=== PATIENT | female | born 1935 | race Caucasian/White ===

== ENCOUNTER 2017-08-19 18:49 | Inpatient (IN) | payer MEDICARE, OTHER ==
[2017-08-19 19:01] VITALS: BMI 28.3
--- NOTE | 2017-08-19 20:07 | PDOC ---
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 Symptoms have been progressively worsening over the past 2-3 days. Denies headache denies arm - Physicial Exam PE: 08/19/17 22:19 Vitals: Triage Vital signs reviewed General Appearance: no acute distress, well nourished well developed, Head: Atraumatic, Eyes: Pupils equal reactive round, extraocular movement intact Cardiac: Regular rate and rhythym, no murmurs, no rubs, no gallops, Lungs: Clear to auscultation bilateral, good air movement bilaterally, Abdomen: Soft, non distended, normal bowel sounds, non tender to palpation Extremities: Full range of motion to all extremities, no cyanosis, clubbing, or edema Skin: Warm and dry, no rashes or lesions, no rash, no petechiae Neuro: AOX3; Left sided facial droop Strength intact to all extremities, Sensation intact to all extremities, Psych: normal mood, normal affect - Medical Decision Making 08/19/17 22:22 Well-appearing no apparent distress with chronic left-sided facial droop which patient states is worse difficulty opening her eye which is worsened baseline We'll check labs head CT EKG observe for neurology consultation MRI and morning and further management.
--- NOTE | 2017-08-19 20:35 | PDOC ---
History of Present Illness - General Chief Complaint: Facial Droop Stated Complaint: FACIAL DROOP Time Seen by Provider: 08/19/17 19:43 - History of Present Illness Initial Comments: 08/19/17 20:15 The patient is an 82 yo f w/ PMH Allen's palsy, CAD s/p stents, previous CVA comes into the ED c/o increased facial droop and spasticity as well as left sided numbness for the past 3 days. Patient states that she has left sided facial weakness and spasticity at baseline, but states that it has increased in severity and began to be associated with numbness along her left face and gums as well as difficulty swallowing. Patient denies chest pain, SOB, chest tightness, cough, fevers, chills, dysuria, urinary frequency or sick contacts. Past History - Past Medical History Allergies/Adverse Reactions: Allergies Allergy/AdvReac Type Severity Reaction Status Date / Time No Known Allergies Allergy Verified 08/19/17 18:57 Home Medications: Ambulatory Orders Gabapentin [Neurontin] 600 mg PO DAILY 09/12/16 Aspirin [ASA -] 81 mg PO DAILY #30 tab.chew 09/15/16 Naproxen [Naprosyn -] 500 mg PO BID #30 tablet 09/15/16 Cardiac Disorders: Yes ([place]) CVA: Yes Hypercholesterolemia: Yes Other medical history: bells palsy - Surgical History Cardiac Surgery: Yes (stents) - Family Disease History Comment:: 08/19/17 21:04 Heart disease in both sides of family - Suicide/Smoking/Psychosocial Hx Smoking History: Never smoked Have you smoked in the past 12 months: No Information on smoking cessation initiated: No Hx Alcohol Use: No Drug/Substance Use Hx: No Substance Use Type: None Neuro Specific PMHX - Complaint Specific PMHX Other Neuro History: previous CVA and bells palsy (unrelated to CVA) Review of Systems - Review of Systems Constitutional: No: Chills, Diaphoresis, Fever, Malaise, Weakness HEENTM: Yes: Difficulty Swallowing, Other (increased spasticity of left facial muscles and left sided numbness). No: Eye Pain, Recent change in vision Respiratory: No: Cough, Shortness of Breath Cardiac (ROS): No: Chest Pain, Edema, Lightheadedness, Palpitations, Syncope ABD/GI: Yes: Difficulty Swallowing. No: Abdominal Distended, Constipated, Diarrhea : No: Burning, Dysuria, Frequency, Urgency Musculoskeletal: No: Back Pain, Joint Pain, Joint Swelling Integumentary: No: Bruising, Change in Hair/Nails, Lesions Neurological: Yes: Numbness, Weakness, Other (spasticity of left facial muscles) . No: Headache Psychiatric: Yes: Anxiety *Physical Exam - Vital Signs Last Vital Signs Temp Pulse Resp BP Pulse Ox 98.1 F 76 18 154/79 95 08/19/17 18:58 08/19/17 18:58 08/19/17 18:58 08/19/17 18:58 08/19/17 18:58 - Physical Exam General Appearance: Yes: Appropriately Dressed. No: Apparent Distress HEENT: positive: Other (Right sided pupils round and reactive to light. EOMI on left. Unable to assess the left side as the patient had difficulty keeping eye open ) Neck: positive: Supple. negative: Tender, Decreased range of motion Respiratory/Chest: positive: Lungs Clear, Normal Breath Sounds. negative: Respiratory Distress, Accessory Muscle Use Cardiovascular: positive: Regular Rhythm, Regular Rate, S1, S2. negative: Edema , JVD, Murmur, Gallop/S3, Gallop/S4 Gastrointestinal/Abdominal: positive: Normal Bowel Sounds, Flat, Soft. negative : Tender Integumentary: positive: Normal Color, Dry, Warm. 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 Patient has increased tone of her left facial muscles which she and her son states are worse than normal. Patient's nerological exam is benign, though there is increased tone on the left which limits some portions of the neuro exam. Though this is likely an acute exacerbation of the patient's previous allen's palsy, the patient has multiple risk factors for thromboembolic events, warranting further workup to rule out new stroke. Infectious etiology in this elderly woman should also be ruled out. NIH stroke scale 1. -non-con CT head -CBC, CMP -EKG -coags -type and screen -CXR -urinalysis 08/19/17 22:53 -CT head negative for acute pathology -CBC, CMP WNL -EKG shows NSR -CXR WNL -Patient will likely require admission for observation 08/20/17 01:58 -Spoke with Dr. Briseno who will agree to admit patient to Tele Obs. -patient is awaiting MRI in AM to further evaluate possible ischemia. *DC/Admit/Observation/Transfer Diagnosis at time of Disposition: Facial droop - Discharge Dispostion Admit: Yes NIH Stroke Scale - Last Known Well Date/Time & Onset Date Last Known Well: 08/15/17 - Initial Evaluation Level of consciousness: Alert Ask patient the month and their age: Answers both correctly Ask patient to open & close eyes; make fist and let go: Obeys both correctly Best gaze (horizontal eye movement): Normal Visual field testing: No visual field loss Facial paresis (Show teeth/raise eyebrows/close eyes tight): Minor paralysis ( flattened nasolabial fold, asymmetry on smiling) Motor Function: Left Arm: Normal Motor Function: Right Arm: Normal (extends arm 90 (or 45) degrees for 10 seconds without drift Motor Function: Left Leg: Normal (extends leg 30 degrees for 5 seconds without drift) Motor Function: Right Leg: Normal (extends leg 30 degrees for 5 seconds without drift) Limb Ataxia: No ataxia Sensory(Use pinprick test arms,legs,trunk,face/side to side): Normal Best language (Describe picture, name items, read sentences): No Aphasia Dysarthria (read several words): Normal articulation Extinction and Inattention: No abnormality - Total Score NIH Stroke Scale Score: 1 tPA Exclusion Checklist 0-3hr - Time Elapsed Date last known well: 08/15/17 - Thrombolytic Therapy Candidate Is the patient eligible for Thrombolytic Therapy?: No - Ineligibility reason(s) Reasons No tPA given: Outside of window - delayed arrival tPA Exclusion checklist 3-4.5h - Time Elapsed Date last known well: 08/15/17 - Thrombolytic Therapy Candidate Is patient eligible for thrombolytic therapy: No - Ineligibility reason(s) Reasons No tPA given: Outside of window - delayed arrival
[2017-08-19 21:13] LABS: MCH 31.4 pg (25.7-33.7); MCHC 34.5 g/dl (32.0-36.0); MEAN CELL VOLUME 90.9 fl (80-96); MEAN PLT VOLUME 8.3 fl (7.5-11.1); PLATELET COUNT 290 K/MM3 (134-434); RDW 14.4 % (11.6-15.6); WHITE BLOOD COUNT 10.5 K/mm3 (4.0-10.0)
[2017-08-19 21:26] LABS: INR 0.99 (0.82-1.09); PROTHROMBIN TIME (PATIENT) 11.2 SEC (9.98-11.88)
[2017-08-19 21:28] LABS: ACTIVATED PTT 27.3 SECONDS (26.9-34.4)
[2017-08-19 22:14] LABS: ALBUMIN 3.2 g/dl (3.4-5.0); ALK PHOS 84 U/L (45-117); ANION GAP 8 (8-16); BILIRUBIN,TOTAL 0.2 mg/dL (0.2-1.0); CALCIUM 8.7 mg/dL (8.5-10.1); CO2 26 mmol/L (21-32); CREATININE 0.6 mg/dL (0.55-1.02); GLUCOSE,RANDOM 109 mg/dL (74-106); SGOT/AST 13 U/L (15-37); SGPT/ALT 18 U/L (12-78); TOT PROT 6.6 g/dl (6.4-8.2)
[2017-08-19 22:17] LABS: PLATELET ESTIMATE ADEQUATE (NORMAL); REACTIVE LYMPHOCYTES 2 % (0-80)
[2017-08-20 00:08] LABS: URINE APPEARANCE CLEAR; URINE BILIRUBIN NEGATIVE (NEGATIVE); URINE BLOOD 1+ (NEGATIVE); URINE COLOR STRAW; URINE GLUCOSE (UA) NEGATIVE (NEGATIVE); URINE KETONE NEGATIVE (NEGATIVE); URINE NITRITE NEGATIVE (NEGATIVE); URINE PROTEIN NEGATIVE (NEGATIVE); URINE UROBILINOGEN NEGATIVE mg/dL (0.2-1.0)
[2017-08-20 00:15] LABS: URINE MUCUS RARE; URINE RBC 1 /hpf (0-3); URINE WBC 1 /hpf (3-5)
[2017-08-20] MEDS ORDERED: FAMOTIDINE 20 MG/50 ML IVPB 50 ML IVPB ONE ×2 (01:37→01:43)
[2017-08-20 08:05] LABS: BASOPHIL 0.5 % (0-2.0); EOSINOPHIL 1.9 % (0-4.5); MCH 30.7 pg (25.7-33.7); MCHC 33.4 g/dl (32.0-36.0); MEAN CELL VOLUME 92.1 fl (80-96); MEAN PLT VOLUME 8.1 fl (7.5-11.1); NEUTROPHILS 63.3 % (42.8-82.8); PLATELET COUNT 270 K/MM3 (134-434); RDW 14.3 % (11.6-15.6); WHITE BLOOD COUNT 8.2 K/mm3 (4.0-10.0)
[2017-08-20 08:36] LABS: ANION GAP 8 (8-16); CALCIUM 8.2 mg/dL (8.5-10.1); CO2 26 mmol/L (21-32); GLUCOSE,RANDOM 91 mg/dL (74-106)
[2017-08-20 08:49] LABS: ALK PHOS 68 U/L (45-117); BILIRUBIN,TOTAL 0.3 mg/dL (0.2-1.0); CREATININE 0.6 mg/dL (0.55-1.02); SGOT/AST 11 U/L (15-37); SGPT/ALT 17 U/L (12-78); THYROID STIMULATING HORMONE 5.58 uIU/ml (0.358-3.74); TOT PROT 5.9 g/dl (6.4-8.2)
[2017-08-20 09:09] LABS: URINE LEUK ESTERASE Negative (NEGATIVE)
[2017-08-20] MEDS: ASPIRIN 81 MG CHEWABLE TABLETS PO SCH (10:15)
[2017-08-20] MEDS: GABAPENTIN 300 MG CAPSULE (FP) PO SCH (10:15)
[2017-08-20] MEDS ORDERED: HEPARIN NA (PORCINE) 5,000 UNITS/ML 1ML VIAL ONE (11:22)
[2017-08-20] MEDS: HEPARIN NA (PORCINE) 5,000 UNITS/ML 1ML VIAL SQ SCH ×2 (11:24→22:06)
--- NOTE | 2017-08-20 13:13 | EKG ---
Test Reason : Blood Pressure : / mmHG Vent. Rate : 062 BPM Atrial Rate : 062 BPM P-R Int : 146 ms QRS Dur : 092 ms QT Int : 420 ms P-R-T Axes : 005 -08 047 degrees QTc Int : 426 ms POOR DATA QUALITY, INTERPRETATION MAY BE ADVERSELY AFFECTED NORMAL SINUS RHYTHM NONSPECIFIC T WAVE ABNORMALITY NO PREVIOUS ECGS AVAILABLE REPEAT EKG IF CLINICALLY INDICATED Confirmed by DAHLIA BAHENA MD ([id number]) on 08/20/2017 1:13:20 PM Referred By: Confirmed By:DAHLIA BAHENA MD
--- NOTE | 2017-08-20 19:08 | CONSULT ---
Consult - text type - Consultation Consultation Note: NEUROLOGY CONSULTATION is greatly appreciated: This 82 yo woman lives alone with her son upstairs. PMH sig for Chol, ASHD s/p stents. 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 I saw her in 2006, but patient claims facial weakness is for "one year." Now admitted with increased "pulling" of the left face and "numbness" of the left cheek. CT of head (reviewed): Normal study with speckled basal ganglia calcification. Carotid duplex: Mild, diffuse plaques without significant hemodynamic changes. MAEGAN: No bruits. Cor- reg. NEURO: MS/speech: normal CN: left hemifacial spasm with synkinetic facial movements and mild residual left Allen's palsy Otherwise II-XII: normal Motor: No drift or tremor. Normal strength, tone, bulk and reflexes. Downgoing toes. Coord: No FTN dystaxia Sensory: Normal. Romberg neg. 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 Suggest: Agree with MRI in AM (otherwise will do as out patient). Begin Oxcarbazepine (Trileptal) 150 mg PO q12 hrs (begin tonight). OK to D/C in the AM Neuro f/u as outpatient (approx 2 weeks) for facial EMG study and increase Oxcarb to 300 q 12 hrs if tolerated. Botox treatment as out patient. Thank you very much, Aniket Valdovinos MD
--- NOTE | 2017-08-20 20:23 | HP ---
Admitting History and Physical - Admission History of Present Illness: The patient is an 82 yo female w/ PMH Allen's palsy, CAD s/p stents, previous CVA and HLD. Pt presented to the ER w/ increased facial droop and spasticity as well as left sided numbness for the past 3 days. Patient states that she has left sided facial weakness and spasticity at baseline, but states that it has increased in severity and began to be associated with numbness along her left face and gums as well as difficulty swallowing. 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) Cardiovascular: Yes: CAD, Hyperlipdemia - Smoking History Smoking history: Never smoked Have you smoked in the past 12 months: No - Alcohol/Substance Use Hx Alcohol Use: No Home Medications - Allergies Allergies/Adverse Reactions: Allergies Allergy/AdvReac Type Severity Reaction Status Date / Time No Known Allergies Allergy Verified 08/19/17 18:57 - Home Medications Home Medications: Ambulatory Orders Gabapentin [Neurontin] 600 mg PO DAILY 09/12/16 Aspirin [ASA -] 81 mg PO DAILY #30 tab.chew 09/15/16 Naproxen [Naprosyn -] 500 mg PO BID #30 tablet 09/15/16 Family Disease History - Family Disease History Family History: Unremarkable Review of Systems - Review of Systems Constitutional: reports: No Symptoms Neck: reports: Other ((+) jaw weakness) Cardiovascular: reports: No Symptoms Respiratory: reports: No Symptoms Gastrointestinal: reports: No Symptoms Neurological: reports: Numbness Physical Examination Vital Signs: Vital Signs Temperature 98 F 08/20/17 17:45 Pulse Rate 49 L 08/20/17 17:45 Respiratory Rate 20 08/20/17 17:45 Blood Pressure 154/72 08/20/17 17:45 O2 Sat by Pulse Oximetry (%) 95 08/20/17 16:33 Constitutional: Yes: Well Nourished Eyes: Yes: WNL Neck: Yes: WNL, Supple Cardiovascular: Yes: WNL, Regular Rate and Rhythm Respiratory: Yes: WNL, Regular, CTA Bilaterally Gastrointestinal: Yes: WNL, Normal Bowel Sounds, Soft Extremities: Yes: WNL Edema: No Neurological: Yes: Other (Lt Allen's palsy) Labs: CBC, BMP 08/20/17 07:49 08/20/17 07:49 Problem List - Problems (1) Facial droop Assessment/Plan: Due to chronic Allen's palsy CT scan head unremarkable MRI brain Neuro consult Possible dc planning for am Await echo Carotid doppler did not show significant stenosis Cont trileptal Code(s): R29.810 - FACIAL WEAKNESS (2) Chronic neck pain Assessment/Plan: Pt is on percocet at home Code(s): M54.2 - CERVICALGIA G89.29 - OTHER CHRONIC PAIN (3) CAD (coronary artery disease) Assessment/Plan: Cont asa/lipitor Code(s): I25.10 - ATHSCL HEART DISEASE OF [place] CORONARY ARTERY W/O ANG PCTRS
[2017-08-20] MEDS ORDERED: ATORVASTATIN CA 40 MG TABLET (FP) PO SCH (22:00)
[2017-08-20] MEDS: OXcarbazepine 150 MG TABLET (UD) PO SCH (22:06)
[2017-08-21] MEDS: ACETAMINOPHEN 325 MG TABLET (FP) PO PRN ×2 (03:05→12:06)
[2017-08-21] MEDS: oxyCODONE HCL 5 MG TABLET PO PRN ×2 (03:06→12:05)
[2017-08-21 07:55] LABS: BASOPHIL 0.4 % (0-2.0); EOSINOPHIL 2.3 % (0-4.5); MCH 30.6 pg (25.7-33.7); MCHC 33.4 g/dl (32.0-36.0); MEAN CELL VOLUME 91.6 fl (80-96); MEAN PLT VOLUME 8.2 fl (7.5-11.1); NEUTROPHILS 57.4 % (42.8-82.8); PLATELET COUNT 257 K/MM3 (134-434); RDW 14.2 % (11.6-15.6); WHITE BLOOD COUNT 7.9 K/mm3 (4.0-10.0)
[2017-08-21 08:38] LABS: ALBUMIN 2.9 g/dl (3.4-5.0); ANION GAP 6 (8-16); CALCIUM 8.2 mg/dL (8.5-10.1); CO2 28 mmol/L (21-32); GLUCOSE,RANDOM 94 mg/dL (74-106)
[2017-08-21 08:42] LABS: ALK PHOS 68 U/L (45-117); BILIRUBIN,TOTAL 0.3 mg/dL (0.2-1.0); CREATININE 0.6 mg/dL (0.55-1.02); SGOT/AST 10 U/L (15-37); SGPT/ALT 16 U/L (12-78); THYROXINE (T4) 8.1 ug/dl (4.8-13.9); TOT PROT 5.8 g/dl (6.4-8.2)
[2017-08-21 10:14] VITALS: BP 136/73; PULSE 52; TEMP 98
[2017-08-21] MEDS: GABAPENTIN 300 MG CAPSULE (FP) PO SCH (10:34)
[2017-08-21] MEDS: HEPARIN NA (PORCINE) 5,000 UNITS/ML 1ML VIAL SQ SCH (10:35)
[2017-08-21] MEDS: OXcarbazepine 150 MG TABLET (UD) PO SCH (10:35)
[2017-08-21] MEDS: ASPIRIN 81 MG CHEWABLE TABLETS PO SCH (10:35)
--- NOTE | 2017-08-21 11:20 | CONSULT ---
Admitting History and Physical - Primary Care Physician PCP: Jayne Easley - Admission History of Present Illness: Per EMR:History of Present Illness: The patient is an 82 yo female w/ PMH Allen's palsy, CAD s/p stents, previous CVA and HLD. Pt presented to the ER w/ increased facial droop and spasticity as well as left sided numbness for the past 3 days. Patient states that she has left sided facial weakness and spasticity at baseline, but states that it has increased in severity and began to be associated with numbness along her left face and gums as well as difficulty swallowing. 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 MRI pending. Known to me from 2016 admission-Observed with twitching of entire left face including eye. Intermittent. Symmetry at rest until twitches initiate, resulting in pulling of facial muscles to left. Performance similar today. Pt denies dysphagia today. She reports at times swallowing is "funny" but denies stasis, coughing, vocal changes. MRI pending. 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) Cardiovascular: Yes: CAD, Hyperlipdemia - Smoking History Smoking history: Never smoked Have you smoked in the past 12 months: No - Alcohol/Substance Use Hx Alcohol Use: No History - Admission Reason For Visit: FACIAL WEAKNESS - Diagnostics X-ray: Report Reviewed CT Scan: Report Reviewed - General Mental Status: Alert and Oriented, Awake and Alert, Able to Follow Commands Attention: Intact Ability to Follow Directions: Excellent Head/Neck Control: WFL - Hearing Hearing: Normal Speech Evaluation - Communication Primary Language: [place] Communication: Yes: Within Normal Limits Oral Expression Ability: Yes: No Impairment - Speech Characteristics Voice Loudness: Normal Voice Pitch: Yes: Normal Voice Phonatory-based Quality: Yes: Normal Speech Pattern: Normal Speech Clarity: < 100% Nasal Resonance: Normal Articulation: Yes: Precise Rate of Speech: Intact - Language/Auditory Comprehension Follows: Yes: 2 Stage Simple Commands - Language/Verbal Expression Able to Respond to Simple Queries: Yes: WNL Able to Communicate Wants and Needs: Yes: WNL Functional Communication Status: Yes: WNL - Memory/Perception long-term Memory: Yes: WNL Short Term Memory: Yes: WNL - Swallow Evaluation/Bedside Assessment Current Nutritional Intake: Regular, Thin Liquids Oral Secretions: Yes: WFL Dentition: Yes: Adequate Facial Symmetry at Rest: Facial Droop Left (Per Neuro-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 ) Pucker Lips: Droops Left (spontaneously elevates with laughter.) Lingual Movement: Symmetric Lingual Speed of Movement: Normal Lingual Movement Strgth Against Opposition: Normal Lingual Movement Characteristics: Normal Velopharyngeal Movement: Normal Laryngeal Elevation: WFL Laryngeal Movement: Able to Palpate Rate of Intake: WFL Bolus Size: WFL Labial Seal: WFL A-P Transit: WFL Timing of Swallow: WFL Coughing/Throat Clear: No Change in Voice: No Recommendations - Speech Evaluation, Impression/Plan Impression: Chronic left Allen's palsy with left side twitching lower and upper face/left eye. Swallowing overtly intact, with c/o feeling "funny" in the past but "normal now.". Pending MRI head. - Dysphagia Impressions/Plan Swallowing Skills: WFL *Silent aspiration: cannot be R/O at bedside Recommendations: Modified Barium Swallow (as out pt, if difficulty noted) - Recommendations Diet Consistency: Regular Medication Administration: Whole with water Liquids: Thin Liquids
--- NOTE | 2017-08-21 12:31 | PN ---
Physical Exam: SUBJECTIVE: Patient seen and examined OBJECTIVE: Vital Signs Period Temp Pulse Resp BP Sys/Valerio Pulse Ox Last 24 Hr 87.9 F-98.2 F 49-66 16-20 110-154/59-74 95-95 GENERAL: The patient is awake, alert, and fully oriented, in no acute distress. HEAD: Normal with no signs of trauma. EYES: PERRL, extraocular movements intact, sclera anicteric, conjunctiva clear. No ptosis. ENT: Ears normal, nares patent, oropharynx clear without exudates, moist mucous membranes. NECK: Trachea midline, full range of motion, supple. LUNGS: Breath sounds equal, clear to auscultation bilaterally, no wheezes, no crackles, no accessory muscle use. HEART: Regular rate and rhythm, S1, S2 without murmur, rub or gallop. ABDOMEN: Soft, nontender, nondistended, normoactive bowel sounds, no guarding, no rebound, no hepatosplenomegaly, no masses. EXTREMITIES: 2+ pulses, warm, well-perfused, no edema. NEUROLOGICAL: Cranial nerves II through XII grossly intact. Normal speech, gait not observed. PSYCH: Normal mood, normal affect. SKIN: Warm, dry, normal turgor, no rashes or lesions noted Laboratory Results - last 24 hr 08/21/17 08/21/17 05:35 05:35 WBC 7.9 RBC 4.14 Hgb 12.6 Hct 37.9 MCV 91.6 MCH 30.6 MCHC 33.4 RDW 14.2 Plt Count 257 MPV 8.2 Neutrophils % 57.4 Lymphocytes % 31.0 Monocytes % 8.9 Eosinophils % 2.3 Basophils % 0.4 Sodium 138 Potassium 4.3 Chloride 104 Carbon Dioxide 28 Anion Gap 6 L BUN 19 H D Creatinine 0.6 Creat Clearance w eGFR > 60 Random Glucose 94 Calcium 8.2 L Total Bilirubin 0.3 AST 10 L ALT 16 Alkaline Phosphatase 68 Total Protein 5.8 L Albumin 2.9 L Active Medications Generic Name Dose Route Start Last Admin Trade Name Freq PRN Reason Stop Dose Admin Acetaminophen 650 mg 08/21/17 02:59 08/21/17 12:06 Tylenol - PO 650 mg Q6H PRN Administration PAIN Aspirin 81 mg 08/20/17 10:00 08/21/17 10:35 Asa - PO 81 mg DAILY KELSY Administration Atorvastatin Calcium 40 mg 08/20/17 22:00 08/20/17 22:06 Lipitor - PO 40 mg HS KELSY Administration Gabapentin 600 mg 08/20/17 10:00 08/21/17 10:34 Neurontin - PO 600 mg DAILY KELSY Administration Heparin Sodium (Porcine) 5,000 unit 08/20/17 10:00 08/21/17 10:35 Heparin - SQ 5,000 unit BID KELSY Administration Oxcarbazepine 150 mg 08/20/17 22:00 08/21/17 10:35 Trileptal - PO 150 mg BID KELSY Administration Oxycodone HCl 10 mg 08/21/17 02:59 08/21/17 12:05 Roxicodone - PO 10 mg Q6H PRN Administration PAIN ASSESSMENT/PLAN:
--- NOTE | 2017-08-21 12:59 | DS ---
Physical Exam: SUBJECTIVE: Patient seen and examined OBJECTIVE: Vital Signs Period Temp Pulse Resp BP Sys/Valerio Pulse Ox Last 24 Hr 87.9 F-98.2 F 49-66 16-20 110-154/59-74 95-95 PHYSICAL EXAM GENERAL: The patient is awake, alert, and fully oriented, in no acute distress. HEAD: Normal with no signs of trauma. Left facial droop with spasming/twitching EYES: PERRL, extraocular movements intact, sclera anicteric, conjunctiva clear. ENT: Ears normal, nares patent, oropharynx clear without exudates, moist mucous membranes. NECK: Trachea midline, full range of motion, supple. LUNGS: Breath sounds equal, clear to auscultation bilaterally, no wheezes, no crackles, no accessory muscle use. HEART: Regular rate and rhythm, S1, S2 without murmur, rub or gallop. ABDOMEN: Soft, nontender, nondistended, normoactive bowel sounds, no guarding, no rebound, no hepatosplenomegaly, no masses. EXTREMITIES: 2+ pulses, warm, well-perfused, no edema. NEUROLOGICAL: Cranial nerves II through XII grossly intact. Normal speech, gait not observed. PSYCH: Normal mood, normal affect. SKIN: Warm, dry, normal turgor, no rashes or lesions noted. LABS Laboratory Results - last 24 hr 08/21/17 08/21/17 05:35 05:35 WBC 7.9 RBC 4.14 Hgb 12.6 Hct 37.9 MCV 91.6 MCH 30.6 MCHC 33.4 RDW 14.2 Plt Count 257 MPV 8.2 Neutrophils % 57.4 Lymphocytes % 31.0 Monocytes % 8.9 Eosinophils % 2.3 Basophils % 0.4 Sodium 138 Potassium 4.3 Chloride 104 Carbon Dioxide 28 Anion Gap 6 L BUN 19 H D Creatinine 0.6 Creat Clearance w eGFR > 60 Random Glucose 94 Calcium 8.2 L Total Bilirubin 0.3 AST 10 L ALT 16 Alkaline Phosphatase 68 Total Protein 5.8 L Albumin 2.9 L HOSPITAL COURSE: Date of Admission:08/20/17 Date of Discharge: 08/21/17 Pre hospital course The patient is an 82 yo female w/ PMH Allen's palsy, CAD s/p stents, previous CVA and HLD. Pt presented to the ER w/ increased facial droop and spasticity as well as left sided numbness for the past 3 days. Patient states that she has left sided facial weakness and spasticity at baseline, but states that it has increased in severity and began to be associated with numbness along her left face and gums as well as difficulty swallowing. 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 Patient was started on oxcarbazepine/Trileptal 150 mg PO q12 hrs. Neuro f/u as outpatient (approx 2 weeks) for facial EMG study and increase Oxcarb to 300 q 12 hrs if tolerated. Botox treatment as out patient. Minutes to complete discharge: 35 Discharge Summary Reason For Visit: FACIAL WEAKNESS Current Active Problems CAD (coronary artery disease) (Acute) Chronic neck pain (Acute) Facial droop (Acute) - Instructions Diet, Activity, Other Instructions: A new prescription for Trileptal/oxcarbazepine has been sent to your pharmacy. Take this medication as directed. It is important you follow up with Dr. Valdovinos in two weeks. Call his office tomorrow and make an appointment. You should also follow up with Dr. Briones. You should have blood work done to check your thyroid functioning. Return to the emergency department for any new or worsening symptoms. Referrals: Severo Briones MD [Primary Care Provider] - 1 Month Aniket Valdovinos MD [Staff Physician] - 2 Weeks Disposition: HOME - Home Medications Comprehensive Discharge Medication List: Ambulatory Orders Gabapentin [Neurontin] 600 mg PO DAILY 09/12/16 Aspirin [ASA -] 81 mg PO DAILY #30 tab.chew 09/15/16 Oxcarbazepine [Trileptal -] 150 mg PO BID #60 tablet 08/21/17 This patient is new to me today: Yes Date on this admission: 08/23/17 Emergency Visit: Yes ED Registration Date: 08/20/17 Care time: The patient presented to the Emergency Department on the above date and was hospitalized for further evaluation of their emergent condition. Critical Care patient: No - Discharge Referral Referred to [facility] Med P.C.: No
== END 2017-08-21 14:15 | disposition home or self-care (01) | DRG 74 ==
LOC: JER 18:49 → JERBED 23:53 → OBSVTOIN 08-20 02:37 → J4S 08-20 17:35
PROVIDERS: ADMIT Internal Medicine; ATTEND Nurse Practitioner Acute Care
DX: G51.0 Bell's palsy (principal); I25.10 Atherosclerotic heart disease of native coronary artery without angina pectoris; Z98.61 Coronary angioplasty status; E78.5 Hyperlipidemia, unspecified; Z86.73 Personal history of transient ischemic attack (TIA), and cerebral infarction without residual deficits; R29.810 Facial weakness; M54.2 Cervicalgia
CPT/HCPCS: 36415; 70450-TC; 71010-TC; 80053; 81003; 81015; 84436; 84443; 85025; 85610; 85730; 86850; 86900; 86901; 87086; 93005; 93010; 93306-TC; 93880-TC; 97116-GP; 97161-GP; 99285-25; G0378; J1644

== ENCOUNTER 2021-01-30 13:15 | Emergency (ER) | payer OTHER ==
[2021-01-30 13:18] VITALS: BP 154/66; PULSE 54; TEMP 98.2; BMI 25.4
[2021-01-30] MEDS ORDERED: TETRACAINE 0.5% OPHTH SOLN 2 ML BOTTLE ONE (13:51)
[2021-01-30] MEDS ORDERED: FLUORESCEIN NA 1 EA STRIP ONE (13:51)
== END 2021-01-30 14:30 | disposition home or self-care (01) ==
LOC: FER 13:15
DX: H10.32 Unspecified acute conjunctivitis, left eye (principal); H11.32 Conjunctival hemorrhage, left eye
CPT/HCPCS: 99283-25

== ENCOUNTER 2021-11-14 00:19 | Emergency (ER) | payer OTHER ==
[2021-11-14 00:26] VITALS: BP 145/56; PULSE 70; TEMP 97.8; BMI 28.3
[2021-11-14] MEDS ORDERED: DIPHTH,PERTUSS(ACELL),TET 0.5 ML DISP.SYRIN IM ONE ×2 (00:28→00:31)
== END 2021-11-14 01:41 | disposition home or self-care (01) ==
LOC: FER 00:19
PROC: 0HQFXZZ Repair Right Hand Skin, External Approach (ICD-10-PCS; principal; 2021-11-14)
DX: S61.411A Laceration without foreign body of right hand, initial encounter (principal)
CPT/HCPCS: 12001-25; 73130-TC-RT-FY; 90471; 90715; 99284-25

== ENCOUNTER 2022-04-02 14:34 | Emergency (ER) | payer OTHER ==
[2022-04-02 14:54] VITALS: TEMP 98.5; BMI 27.3
[2022-04-02 16:17] LABS: HEMATOCRIT 38.4 % (32.4-45.2); HEMOGLOBIN 13.5 G/dL (10.7-15.3); MCH 32.2 pg (25.7-33.7); MCHC 35.1 g/dl (32.0-36.0); MEAN CELL VOLUME 91.6 fl (80-96); MEAN PLT VOLUME 8.4 fl (7.5-11.1); PLATELET COUNT 258.8 10^3/uL (134-434); RBC 4.19 10^6/uL (3.60-5.2); RDW 14.1 % (11.6-15.6)
[2022-04-02 16:21] LABS: ALBUMIN 3.8 g/dl (3.4-5.0); BILIRUBIN,TOTAL 0.3 mg/dl (0.2-1); CALCIUM 9.8 mg/dl (8.5-10); CREATININE 0.6 mg/dl (0.55-1.3); TOT PROT 6.6 g/dl (6.4-8.2)
[2022-04-02 16:41] LABS: PLATELET ESTIMATE ADEQUATE
[2022-04-02 17:18] VITALS: BP 122/61; PULSE 66
== END 2022-04-02 17:20 | disposition left against medical advice (07) ==
LOC: FER 14:34
DX: R55 Syncope and collapse (principal); R42 Dizziness and giddiness
CPT/HCPCS: 36415; 70450-TC; 71045-TC-FY; 72125-TC; 80053; 81003; 84484; 85027; 87086; 93005; 99285-25; C9803-CS; U0003; U0005

== ENCOUNTER 2024-10-19 18:28 | Emergency (ER) | payer OTHER ==
[2024-10-19 19:55] VITALS: BP 133/55; PULSE 67; RESP 18; TEMP 98; BMI 28.3
[2024-10-19 21:05] LABS: ALK PHOS 56 U/L (45-117); ANION GAP 7 mmol/L (4-13); BILIRUBIN,TOTAL 0.6 mg/dl (0.2-1); CALCIUM 9.3 mg/dl (8.5-10.1); CHLORIDE 103 mmol/L (98-107); CO2 31 mmol/L (21-32); CREATININE 0.6 mg/dl (0.6-1.3); GLUCOSE,RANDOM 100 mg/dl (74-106); HEMATOCRIT 39.8 % (32.4-45.2); HEMOGLOBIN 13.1 G/dL (10.7-15.3); MAGNESIUM 2.2 mg/dL (1.8-2.4); MCH 31.3 pg (25.7-33.7); MCHC 32.9 g/dl (32.0-36.0); MEAN PLT VOLUME 9.1 fl (7.5-11.1); PLATELET COUNT 225.3 10^3/uL (134-434); RBC 4.19 10^6/uL (3.60-5.2); RDW 15.6 % (11.6-15.6); SGOT/AST 14 U/L (15-37); SGPT/ALT 19 U/L (7-52); SODIUM 141 mmol/L (136-145); TOT PROT 5.9 g/dl (6.4-8.2); WHITE BLOOD COUNT 13.3 10^3/uL (4.0-10.8)
[2024-10-19] MEDS ORDERED: guaiFENesin/CODEINE 10 ML UNIT-DOSE CUPS ONE (22:26)
[2024-10-19] MEDS ORDERED: AZITHROMYCIN 500 MG TABLET ONE (22:27)
[2024-10-19 22:33] LABS: PLATELET ESTIMATE ADEQUATE; TARGET CELLS FEW
[2024-10-19] MEDS ORDERED: ALBUTEROL SO4 2.5/IPRATROPIUM 0.5 INH SOL 3 ML VIAL.NEB. NEB ONE (22:34)
[2024-10-19] MEDS: guaiFENesin/CODEINE 10 ML UNIT-DOSE CUPS PO ONE (22:37)
[2024-10-19] MEDS: AZITHROMYCIN 250 MG TABLET PO ONE (22:37)
[2024-10-19 22:42] LABS: HIV INTERPRETATION NEGATIVE (NEGATIVE)
[2024-10-19] MEDS: ALBUTEROL SO4 2.5/IPRATROPIUM 0.5 INH SOL 3 ML VIAL.NEB. NEB ONE (22:43)
[2024-10-19] MEDS ORDERED: ALBUTEROL SO4 HFA INHALER IH ONE ×2 (22:55→22:57)
== END 2024-10-19 23:10 | disposition home or self-care (01) ==
LOC: FER 18:28
PROC: 3E0F7GC Introduction of Other Therapeutic Substance into Respiratory Tract, Via Natural or Artificial Opening (ICD-10-PCS; principal; 2024-10-19)
DX: J40 Bronchitis, not specified as acute or chronic (principal); R06.02 Shortness of breath; R05.9 Cough, unspecified; Z20.822 Contact with and (suspected) exposure to COVID-19
CPT/HCPCS: 0241U-QW; 36415; 71046-TC-FY; 80053; 83735; 85027; 86803; 87389; 99284-25

== ENCOUNTER 2024-11-30 16:29 | Inpatient (IN) | payer OTHER ==
[2024-11-30] MEDS ORDERED: ALBUTEROL SO4 2.5/IPRATROPIUM 0.5 INH SOL 3 ML VIAL.NEB. NEB ONE ×2 (17:24→18:46)
[2024-11-30] MEDS: ALBUTEROL SO4 2.5/IPRATROPIUM 0.5 INH SOL 3 ML VIAL.NEB. NEB ONE ×3 (17:42→18:51)
[2024-11-30 17:47] LABS: HEMOGLOBIN 13.6 G/dL (10.7-15.3); MCH 32.4 pg (25.7-33.7); MCHC 33.9 g/dl (32.0-36.0); MEAN CELL VOLUME 95.5 fl (80-96); MEAN PLT VOLUME 8.6 fl (7.5-11.1); PLATELET COUNT 249.1 10^3/uL (134-434); RBC 4.19 10^6/uL (3.60-5.2); RDW 14.9 % (11.6-15.6); WHITE BLOOD COUNT 13.2 10^3/uL (4.0-10.8)
[2024-11-30 17:54] LABS: INR 0.99 (0.83-1.09); PROTHROMBIN TIME (PATIENT) 11.3 SEC (9.7-13.0)
[2024-11-30] MEDS ORDERED: guaiFENesin 200 MG/10 ML 10 ML UNIT-DOSE CUPS ONE (17:56)
[2024-11-30] MEDS: guaiFENesin 200 MG/10 ML 10 ML UNIT-DOSE CUPS PO ONE (17:59)
[2024-11-30 18:02] LABS: ACTIVATED PTT 27.3 SECONDS (25.2-36.5)
[2024-11-30 18:15] LABS: ALBUMIN 3.7 g/dl (3.4-5.0); BILIRUBIN,TOTAL 0.4 mg/dl (0.2-1); CALCIUM 9.8 mg/dl (8.5-10.1); CREATININE 0.6 mg/dl (0.6-1.3); TOT PROT 6.2 g/dl (6.4-8.2)
[2024-11-30] MEDS ORDERED: MAGNESIUM SULFATE IN WATER 2 GM/50 ML IVPB IVPB ONE (18:53)
[2024-11-30] MEDS ORDERED: methylPREDNISolone NA SUCC 125 MG/2 ML VIAL ONE (18:53)
[2024-11-30] MEDS ORDERED: cefTRIAXone SODIUM 1 GM VIAL ONE (18:56)
[2024-11-30] MEDS: CEFTRIAXONE 1 GM in DEXTROSE 5%-WATER - 100 ML IVPB ONE (19:01)
[2024-11-30] MEDS: methylPREDNISolone NA SUCC 125 MG/2 ML VIAL IVPB ONE (19:01)
[2024-11-30] MEDS: MAGNESIUM SULF 50% (8.12 MEQ/2 ML-1 GM VIAL) IVPB ONE (19:05)
[2024-11-30] MEDS ORDERED: AZITHROMYCIN 500 MG VIAL IVPB ONE (19:33)
[2024-11-30 19:48] LABS: VENOUS BASE EXCESS 2.8 mmol/L (-2-2); VENOUS O2 SATURATION 76.2 % (70-80); VENOUS PCO2 39.3 mmHg (38-52); VENOUS PH 7.452 (7.310-7.410)
[2024-11-30 20:19] LABS: N-TERMINAL BNP 192.1 pg/ml (5-450)
[2024-11-30] MEDS: AZITHROMYCIN IVPB 500 MG in DEXTROSE 5%-WATER - 250 ML IVPB ONE (20:45)
[2024-11-30] MEDS: VANCOMYCIN 1,000 MG in DEXTROSE 5%-WATER - 250 ML IVPB ONE (21:59)
[2024-11-30] MEDS: guaiFENesin 200 MG/10 ML 10 ML UNIT-DOSE CUPS PO PRN (23:25)
[2024-11-30] MEDS: ALBUTEROL SO4 2.5/IPRATROPIUM 0.5 INH SOL 3 ML VIAL.NEB. NEB PRN (23:26)
[2024-12-01 03:26] VITALS: BMI 29.2
[2024-12-01 07:54] LABS: CALCIUM 8.9 mg/dl (8.5-10.1); CREATININE 0.5 mg/dl (0.6-1.3); POTASSIUM 4.1 mmol/L (3.5-5.1)
[2024-12-01] MEDS: methylPREDNISolone NA SUCC 40 MG/1 ML VIAL IVPUSH SCH ×2 (10:01→18:30)
[2024-12-01] MEDS: CEFTRIAXONE 1 G/50 ML PREMIX 50 ML IVPB SCH (10:01)
[2024-12-01 10:37] LABS: BASO % 0.1 % (0-2.0); HEMATOCRIT 38.8 % (32.4-45.2); HEMOGLOBIN 12.8 GM/dL (10.7-15.3); LYMPH % 7.6 % (8-40); MCH 31.3 pg (25.7-33.7); MCHC 33.1 g/dl (32.0-36.0); MEAN CELL VOLUME 94.6 fl (80-96); MEAN PLT VOLUME 8.7 fl (7.5-11.1); MONO % 2.8 % (3.8-10.2); NEUT % 89.5 % (42.8-82.8); PLATELET COUNT 268 10^3/uL (134-434); RDW 15.2 % (11.6-15.6)
[2024-12-01] MEDS: AZITHROMYCIN IVPB 500 MG/250 ML BAG IVPB SCH (10:54)
[2024-12-01] MEDS: ALBUTEROL SO4 2.5/IPRATROPIUM 0.5 INH SOL 3 ML VIAL.NEB. NEB SCH (20:06)
[2024-12-01] MEDS: guaiFENesin/CODEINE 10 ML UNIT-DOSE CUPS PO PRN (20:06)
[2024-12-01] MEDS: ALBUTEROL SO4 2.5/IPRATROPIUM 0.5 INH SOL 3 ML VIAL.NEB. NEB PRN (23:10)
[2024-12-03] MEDS ORDERED: oxyCODONE HCL 5 MG TABLET PO PRN (14:36)
[2024-12-03] MEDS: ROSUVASTATIN CA 20 MG TABLET PO SCH (21:41)
[2024-12-03] MEDS: ACETAMINOPHEN WITH CODEINE 300MG/30MG TABLET PO PRN (21:45)
[2024-12-03] MEDS: BUDESONIDE/FORMETEROL FUMARATE 80/4.5 mcg INHALER IH SCH (22:35)
[2024-12-04 08:10] LABS: CALCIUM 8.9 mg/dL (8.5-10.1)
[2024-12-04 08:11] LABS: BLOOD UREA NITROGEN 16.5 mg/dL (7-18)
[2024-12-04 08:14] LABS: CREATININE 0.6 mg/dL (0.55-1.3)
[2024-12-04 08:22] LABS: HEMATOCRIT 36.5 % (32.4-45.2); HEMOGLOBIN 11.9 GM/dL (10.7-15.3); MCH 31.1 pg (25.7-33.7); MCHC 32.6 g/dl (32.0-36.0); MEAN CELL VOLUME 95.4 fl (80-96); MEAN PLT VOLUME 8.2 fl (7.5-11.1); PLATELET COUNT 259 10^3/uL (134-434); RBC 3.83 M/mm3 (3.60-5.2); RDW 15.3 % (11.6-15.6); WHITE BLOOD COUNT 19.7 K/mm3 (4.0-10.0)
[2024-12-04] MEDS: PANTOPRAZOLE 40 MG TABLET PO SCH (09:23)
[2024-12-04] MEDS: MONTELUKAST NA 10 MG TABLET PO SCH (09:23)
[2024-12-04] MEDS ORDERED: PANTOPRAZOLE 40 MG TABLET PO SCH (10:00)
[2024-12-04] MEDS: BENZOCAINE/MENTH/CETYLPYRD CL 1 EACH LOZENGE MM SCH (14:08)
[2024-12-04] MEDS: FAMOTIDINE 10 MG TABLET PO ONE (15:59)
[2024-12-04] MEDS: BISACODYL 10 MG SUPP.RECT PR ONE (16:00)
[2024-12-04] MEDS: ENOXAPARIN NA (PORCINE) 40 MG/0.4 ML DISP.SYRIN SQ ONE (17:19)
[2024-12-04] MEDS: guaiFENesin/CODEINE 5 ML UNIT-DOSE CUPS PO SCH (17:20)
[2024-12-04] MEDS: LIDOCAINE 5% TOPICAL PATCH TP SCH (17:26)
[2024-12-04] MEDS: POLYETHYLENE GLYCOL (HEALTHYLAX) 3350 17 GM PACKET PO SCH (21:43)
[2024-12-04] MEDS: LIDOCAINE PATCH REMOVAL MC SCH (21:43)
[2024-12-04] MEDS: DOCUSATE SODIUM 100 MG CAPSULE (FP) PO SCH (21:43)
[2024-12-05] MEDS: MAG HYDROX/ALH/SMC/DPHA/LIDO 240 ML MOUTHWASH MM SCH (00:45)
[2024-12-05] MEDS: NYSTATIN 500,000 UNITS/5 ML SUSPENSION PO SCH (00:50)
[2024-12-05] MEDS: methylPREDNISolone NA SUCC 40 MG/1 ML VIAL IVPUSH SCH ×2 (07:38→17:25)
[2024-12-05] MEDS: ENOXAPARIN NA (PORCINE) 40 MG/0.4 ML DISP.SYRIN SQ SCH (10:16)
[2024-12-05] MEDS: FUROSEMIDE 20 MG TABLET (FP) PO ONE (10:16)
[2024-12-05] MEDS: TETRAHYDROZOLINE HCL EYE DROPS OU SCH (10:19)
[2024-12-05] MEDS: amLODIPine BESYLATE 2.5 MG TABLET (FP) PO ONE (11:02)
[2024-12-05] MEDS ORDERED: methylPREDNISolone NA SUCC 40 MG/1 ML VIAL IVPUSH SCH (12:00)
[2024-12-05] MEDS: ALBUTEROL SO4 0.083% IH SOL 2.5 MG/3 ML VIAL.NEB. NEB SCH (12:19)
[2024-12-05] MEDS: ACETYLCYSTEINE 20% 200MG/ML 4 ML VIAL *FOR ORAL / INH USE ONLY NEB SCH (12:21)
[2024-12-05] MEDS: ASPIRIN COATED 81 MG TABLET.EC PO SCH (15:35)
[2024-12-05] MEDS: FUROSEMIDE 40 MG/4 ML INJECTABLE VIAL IVPUSH ONE ×2 (15:46→15:48)
[2024-12-05] MEDS: BISACODYL 5 MG TABLET.DR (FP) PO ONE ×2 (15:47→15:48)
[2024-12-06] MEDS: FUROSEMIDE 20 MG TABLET (FP) PO SCH (09:47)
[2024-12-06 10:06] LABS: HEMATOCRIT 41.3 % (32.4-45.2); HEMOGLOBIN 13.5 GM/dL (10.7-15.3); LYMPH % 5.7 % (8-40); MCH 31.1 pg (25.7-33.7); MCHC 32.6 g/dl (32.0-36.0); MEAN CELL VOLUME 95.4 fl (80-96); MEAN PLT VOLUME 8.9 fl (7.5-11.1); MONO % 4.2 % (3.8-10.2); NEUT % 90.1 % (42.8-82.8); PLATELET COUNT 288 10^3/uL (134-434); RBC 4.33 M/mm3 (3.60-5.2); RDW 15.2 % (11.6-15.6); WHITE BLOOD COUNT 19.4 K/mm3 (4.0-10.0)
[2024-12-06] MEDS: guaiFENesin 600 MG TABLET.ER (FP) PO SCH (10:15)
[2024-12-06] MEDS: guaiFENesin/CODEINE 5 ML UNIT-DOSE CUPS PO PRN (10:16)
[2024-12-06 10:18] LABS: POTASSIUM 4.4 mmol/L (3.5-5.1)
[2024-12-06 10:25] LABS: ALBUMIN 3.5 g/dl (3.4-5.0); BLOOD UREA NITROGEN 25.6 mg/dL (7-18); CALCIUM 9.6 mg/dL (8.5-10.1); MAGNESIUM 2.4 mg/dL (1.8-2.4)
[2024-12-06 10:28] LABS: CREATININE 0.8 mg/dL (0.55-1.3)
[2024-12-06 10:29] LABS: BILIRUBIN,TOTAL 0.5 mg/dL (0.2-1)
[2024-12-06 10:30] LABS: TOT PROT 6.4 g/dl (6.4-8.2)
[2024-12-06] MEDS: FUROSEMIDE 40 MG/4 ML INJECTABLE VIAL IVPUSH ONE (17:09)
[2024-12-07] MEDS: ACETAMINOPHEN 1000 MG/100 ML BAG IVPB ONE (08:08)
[2024-12-07 09:44] LABS: HEMOGLOBIN 12.6 GM/dL (10.7-15.3); MCHC 32.4 g/dl (32.0-36.0); MEAN CELL VOLUME 95.4 fl (80-96); MEAN PLT VOLUME 8.6 fl (7.5-11.1); PLATELET COUNT 250 10^3/uL (134-434); RBC 4.08 M/mm3 (3.60-5.2); RDW 15.1 % (11.6-15.6); WHITE BLOOD COUNT 17.2 K/mm3 (4.0-10.0)
[2024-12-07 10:08] LABS: POTASSIUM 4.3 mmol/L (3.5-5.1)
[2024-12-07 10:18] LABS: ALBUMIN 3.1 g/dl (3.4-5.0); BLOOD UREA NITROGEN 23.2 mg/dL (7-18)
[2024-12-07 10:19] LABS: CALCIUM 9.3 mg/dL (8.5-10.1)
[2024-12-07 10:21] LABS: CREATININE 0.7 mg/dL (0.55-1.3)
[2024-12-07 10:22] LABS: MAGNESIUM 2.6 mg/dL (1.8-2.4)
[2024-12-07 10:23] LABS: TOT PROT 5.7 g/dl (6.4-8.2)
[2024-12-07 10:33] LABS: BILIRUBIN,TOTAL 0.4 mg/dL (0.2-1)
[2024-12-07 12:47] LABS: ANISOCYTOSIS 0; MACROCYTOSIS 0
[2024-12-07] MEDS ORDERED: CEFUROXIME AXETIL 250 MG TABLET PO SCH (22:00)
[2024-12-08 09:10] LABS: BASO % 0.1 % (0-2.0); EOS % 0.2 % (0-4.5); HEMATOCRIT 41.2 % (32.4-45.2); HEMOGLOBIN 13.4 GM/dL (10.7-15.3); LYMPH % 15.7 % (8-40); MCH 30.8 pg (25.7-33.7); MCHC 32.4 g/dl (32.0-36.0); MEAN CELL VOLUME 95.1 fl (80-96); MEAN PLT VOLUME 8.2 fl (7.5-11.1); MONO % 6.5 % (3.8-10.2); NEUT % 77.5 % (42.8-82.8); PLATELET COUNT 261 10^3/uL (134-434); RBC 4.33 M/mm3 (3.60-5.2); RDW 15.4 % (11.6-15.6); WHITE BLOOD COUNT 15.1 K/mm3 (4.0-10.0)
[2024-12-08] MEDS: predniSONE 20 MG TABLET (UD) PO SCH (09:18)
[2024-12-08 10:31] LABS: POTASSIUM 4.1 mmol/L (3.5-5.1)
[2024-12-08 10:38] LABS: ALBUMIN 3.2 g/dl (3.4-5.0); BLOOD UREA NITROGEN 23.5 mg/dL (7-18); CALCIUM 9.4 mg/dL (8.5-10.1); MAGNESIUM 2.4 mg/dL (1.8-2.4)
[2024-12-08 10:43] LABS: BILIRUBIN,TOTAL 0.4 mg/dL (0.2-1); CREATININE 0.6 mg/dL (0.55-1.3)
[2024-12-08 21:13] VITALS: RESP 18
[2024-12-09 08:49] LABS: HEMATOCRIT 39.5 % (32.4-45.2); MCH 31.3 pg (25.7-33.7); MCHC 32.8 g/dl (32.0-36.0); MEAN CELL VOLUME 95.5 fl (80-96); MEAN PLT VOLUME 7.9 fl (7.5-11.1); PLATELET COUNT 217 10^3/uL (134-434); RBC 4.14 M/mm3 (3.60-5.2); RDW 15.2 % (11.6-15.6); WHITE BLOOD COUNT 15.7 K/mm3 (4.0-10.0)
[2024-12-09 09:11] LABS: CALCIUM 8.7 mg/dL (8.5-10.1); POTASSIUM 4.3 mmol/L (3.5-5.1)
[2024-12-09 09:13] LABS: BLOOD UREA NITROGEN 19.8 mg/dL (7-18); MAGNESIUM 2.3 mg/dL (1.8-2.4)
[2024-12-09 09:16] LABS: CREATININE 0.5 mg/dL (0.55-1.3); PHOSPHOROUS 3.4 mg/dL (2.5-4.9)
[2024-12-09 15:19] VITALS: BP 128/86; PULSE 103; TEMP 97.5
== END 2024-12-09 15:29 | disposition home health service (06) | DRG 194 ==
LOC: FER 16:29 → INTOOBSV 21:29 → FM/S 21:29 → OBSVTOIN 12-01 13:24 → J8W 12-02 14:46
PROVIDERS: ADMIT Student in an Organized Health Care Education/Training Program; ATTEND Internal Medicine
DX: J12.1 Respiratory syncytial virus pneumonia (principal); J44.1 Chronic obstructive pulmonary disease with (acute) exacerbation; B33.8 Other specified viral diseases; I25.10 Atherosclerotic heart disease of native coronary artery without angina pectoris; G51.0 Bell's palsy; K21.9 Gastro-esophageal reflux disease without esophagitis; E78.5 Hyperlipidemia, unspecified
CPT/HCPCS: 0241U-QW; 36415; 71045-TC-FY; 71046-TC-FY; 80048; 80053; 81003; 82803; 83735; 83880; 84100; 84484; 85025; 85027; 85610; 85730; 87040; 87086; 87899; 93005; 93970-TC; 94150; 94640; 97116-GP; 97162-GP; 99285-25; G0378; J0131

== ENCOUNTER 2025-01-24 01:35 | Emergency (ER) | payer OTHER ==
[2025-01-24 01:50] VITALS: BP 125/97; PULSE 72; RESP 18; TEMP 97.7; BMI 29.2
== END 2025-01-24 04:25 | disposition home or self-care (01) ==
LOC: FER 01:35
PROC: 2W3CX1Z Immobilization of Right Lower Arm using Splint (ICD-10-PCS; principal; 2025-01-24)
DX: S52.514A Nondisplaced fracture of right radial styloid process, initial encounter for closed fracture (principal); S00.83XA Contusion of other part of head, initial encounter; H60.91 Unspecified otitis externa, right ear; W01.0XXA Fall on same level from slipping, tripping and stumbling without subsequent striking against object, initial encounter; Y92.009 Unspecified place in unspecified non-institutional (private) residence as the place of occurrence of the external cause
CPT/HCPCS: 29125; 70450-TC; 70486-TC; 72125-TC; 73090-TC-RT-FY; 73130-TC-RT-FY; 73200-TC-RT; 99284-25